=== PATIENT | male | born 1990 | race Caucasian/White ===

== ENCOUNTER 2025-03-17 07:57 | Day surgery (SDC) | payer OTHER, BC ==
[~2025-03-17 07:57] MED LIST: Midazolam 1 MG/ML 2 ML SDV ONE; Ondansetron 4 MG/2 ML SDV IVPUSH PRN; Ropivacaine 0.5% 5 MG/ML 30 ML SDV ONE; Sodium Chloride 0.9% 10 ML Syringe FLUSH PRN; Sodium Chloride 0.9% 10 ML Syringe FLUSH SCH; fentaNYL 100 MCG/2 ML SDV IVPUSH PRN; fentaNYL 100 MCG/2 ML SDV ONE; propofoL 500 MG/50 ML 50 ML ONE
[2025-03-17] MEDS: Lactated Ringers 1,000 ML IV SCH (08:20)
[2025-03-17] MEDS ORDERED: Propofol 200 MG/20 ML SDV ONE ×3 (09:18→10:18)
[2025-03-17 12:16] VITALS: BP 143/72; PULSE 63
== END 2025-03-17 12:05 | disposition home or self-care (01) ==
LOC: JD.SDS 07:57
PROVIDERS: ATTEND Orthopaedic Surgery
DX: S46.211A Strain of muscle, fascia and tendon of other parts of biceps, right arm, initial encounter (principal); Z87.891 Personal history of nicotine dependence; Z79.899 Other long term (current) drug therapy; X50.0XXA Overexertion from strenuous movement or load, initial encounter
CPT/HCPCS: 24342; 64415; 76000; C1776; J0690; J2250; J2704; J2795; J3010; J7120; 01710; 64450